=== PATIENT | male | born 1970 | race Caucasian/White ===

== ENCOUNTER → 2017-12-31 | Outpatient (CLI) | payer BC ==
[~2017-12-31] VITALS: Ht 175.3 cm; Wt 72.6 kg
[~2017-12-31] MED LIST: CARVEDILOL3.125 MG PO; LASIX 20 MG TAB20 MG PO; LISINOPRIL5 MG PO
[2017-12-31 12:36] LABS: MCH 28.5 pg (26.0-34.0); MCHC 32.5 g/dL (28.0-37.0); MCV 87.7 fL (80.0-100.0); MPV 9.3 fl. (7.2-11.1); RBC 4.9 mil/uL (4.50-6.00); RDW-CV 13.8 % (10.5-14.5); WBC 5.9 thou/uL (4.0-11.0)
[2017-12-31 12:46] LABS: ANION GAP 4 mmol/L (7-16); BUN 20 mg/dL (7-18); CALCIUM 8.7 mg/dL (8.5-10.1); CHLORIDE 105 mmol/L (98-107); CO2 27 mmol/L (21-32); GLUCOSE 89 mg/dL (70-99); POTASSIUM 4.8 mmol/L (3.5-5.1); SODIUM 136 mmol/L (136-145)
[2017-12-31 12:47] LABS: APTT 23.6 Seconds (25.0-31.3); INR 1.1; PROTIME 11.1 Seconds (9.20-11.50)
[2017-12-31 12:51] LABS: ALBUMIN 3.4 g/dL (3.4-5.0); ALKALINE PHOSPHATASE 66 U/L (46-116); CHOLESTEROL 182 mg/dL (<200); HDL CHOLESTEROL 52 mg/dL (>40); LDL CHOLESTEROL 115 mg/dL (<100); SGOT 33 U/L (15-37); SGPT 76 U/L (30-65); TC:HDL 3.5 Ratio (Not establshd); TOTAL BILIRUBIN 0.6 mg/dL (<0.1-1.0); TOTAL PROTEIN 6.8 g/dL (6.4-8.2); TRIGLYCERIDE 75 mg/dL (<150); VLDL 15 mg/dL (<40)
[2017-12-31 12:53] LABS: SERUM ASSESSMENT Clear
[2017-12-31 14:46] VITALS: BP 81/54
[2017-12-31 15:10] VITALS: BP 82/59
[2017-12-31 15:15] VITALS: BP 88/60
[2017-12-31 15:30] VITALS: BP 84/55
[2017-12-31 16:00] VITALS: BP 90/60
--- NOTE | 2017-12-31 17:12 | EKG ---
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[facility] : 1970 Requested By: Mak Hassan Order Number: [id number] Roya MD: Corby Joseph Measurements Intervals Elroy Rate: 96 P: 73 CO: 165 QRS: 74 QRSD: 108 T: 55 QT: 366 QTc: 463 Interpretive Statements Sinus rhythm Left atrial enlargement Left ventricular hypertrophy Nonspecific T abnormalities, lateral leads Baseline wander in lead(s) V2 No previous ECG available for comparison Electronically Signed On 12-31-2017 17:11:59 CDT by Corby Joseph [email or web address] <ELECTRONICALLY SIGNED> By: Corby Joseph MD, [facility] 12/31/17 1711 1210 1210 Corby Joseph MD, FACC /EPI
--- NOTE | 2017-12-31 17:31 | CARD ---
[address] [address] CARDIAC CATH REPORT Name: CLIFFORD NYE Room: [facility]#: [id number] Admission: 12/31/17 Attend Phys: Mak Hassan MD Discharge: Date of : 70 Report #: [id number] THIS REPORT FOR: //name// APPROVED REPORT Study performed: 12/31/2017 14:00:16 Patient Details Patient Status: Out-Patient Room #: The patient is a 47 year-old male Event Personnel Mak Hassan Soundscriber Mechanic, Mallorie Cruz RN RN, Dima Smith, Clifford Patel ARRT (R) Scrub, Mabel Boggs RTR Scrub Procedures Performed Right transradial approach, Left Heart Catheterization, Selective Right and Left Coronary Angiography, Left Ventriculogram Indication CHF Current Status: Yes Procedure Narrative The patient was brought electively to the Cardiac Catheterization Laboratory and was prepped and draped in a sterile manner. The right wrist was infiltrated with 1% Lidocaine subcutaneous anesthesia. A Slender Glidesheath sheath was inserted into the . Coronary angiography was performed using coronary diagnostic catheters. The right coronary system was accessed and visualized with a DCR: [place] 4.0 5fr catheter. The left coronary system was accessed and visualized with a DCR: [place] 4.0 5fr catheter. The left ventricle was accessed and visualized with a PC: Angled Pig 5fr catheter. The patient tolerated the procedure well and there were no complications associated with the procedure. VASC BAND 8CC'S Intraoperative Conscious Sedation Sedation start time: 1359 Case end Time: 1417 Fentanyl 50 mcg Versed 2 mg Fluoro Time: 2.5 minutes Dose: DAP 43196 cGycm2 466 mGy Contrast Type and Amount: Omnip[place] [address] [place] [address] CARDIAC CATH REPORT Name: CLIFFORD NYE Room: [facility]#: [id number] Admission: 12/31/17 Attend Phys: Mak Hassan MD Discharge: Date of : 70 Report #: [id number] Diagnostic Cath Left Main Normal bifurcating into the LAD and circumflex coronary arteries. LAD Normal in its proximal mid and distal portion. Diagonal 1 Normal and large in caliber. Circumflex Normal in its proximal mid and distal portion. OM1 Normal and small in caliber. OM2 Normal large and branch. Right Coronary Normal in its proximal mid and distal portion. R PDA Normal. RPLV Normal. Left Ventriculography The left ventricle is moderately dilated in size with decreased contractility. The left ventricular ejection fraction is estimated to be 20-25%. Hemodynamics The aortic pressure is 76/49 mmHg with a mean of 61 mmHg. The left ventricular pressure is 73/8 mmHg with a mean of mmHg. The left ventricular end diastolic pressure is 19 mmHg. Conclusion 1. Normal coronary arteries. 2. Dilated left ventricle. 3. Severe left ventricular systolic dysfunction. 4. Moderately elevated left ventricular end-diastolic pressure. Findings consistent with dilated cardiomyopathy that is nonischemic in origin. Recommendations 1. Continue medical management for heart failure and aggressive risk factor medication. <ELECTRONICALLY SIGNED> By: Mak Hassan MD, FACC 12/31/17 1731 173 1731Michaeopal Hassan MD, FACC /INF
--- NOTE | 2018-01-03 11:39 | H ---
[address] [address] HISTORY AND PHYSICAL Name: PARRISCLIFFORD Espinosa Room: [facility]#: [id number] Admission: 12/31/17 Attend Phys: Mak Hassan MD Discharge: Date of : 70 Report #: [id number] THIS REPORT FOR: //name// CC: BENJAMIN physician/PCP Mak Hassan DATE OF SERVICE: 12/31/2017 INDICATION: Congestive heart failure evaluation. HISTORY OF PRESENT ILLNESS: The patient is a very pleasant 47-year-old gentleman diagnosed with acute systolic heart failure approximately 3 weeks ago. The patient had symptoms of dyspnea and orthopnea. His symptoms resolved with diuresis. Ejection fraction was 20%. He had left ventricular enlargement and moderate left atrial dilatation, moderate mitral insufficiency and rqarllfa-[id number] tricuspid insufficiency. He did not have any chest pain. He denies palpitations. There was no syncope. He is without other cardiac complaint. There is a history of methamphetamine use up until a month ago. PAST MEDICAL HISTORY: 1. Newly diagnosed acute systolic heart failure. 2. Mitral insufficiency. 3. Tricuspid insufficiency. 4. History of polysubstance abuse. SOCIAL HISTORY: The patient denies use of tobacco. ALLERGIES: None documented. MEDICATIONS: None prior to diagnosis. Presently, he is on diuretics, GENEVIEVE inhibitor, and beta ingris. REVIEW OF SYSTEMS: A 14-point review of systems is negative. PHYSICAL EXAMINATION: VITAL SIGNS: Stable. Blood pressure 112/67, pulse 98 and regular. GENERAL: This is a thin white male, in no distress. HEENT: The patient is wearing glasses. Extraocular muscles intact. Mucous membranes are moist. NECK: Shows no jugular venous distention. There are no carotid bruits. CHEST: Reveals clear lung rosen. CARDIAC: Reveals a regular rhythm with no gallop or murmur. ABDOMEN: Reveals a thin abdomen, soft, nontender, bowel sounds presents. EXTREMITIES: Shows no clubbing, cyanosis or edema. Peripheral pulses 2+ [place] [address] HISTORY AND PHYSICAL Name: CLIFFORD NYE Room: [facility]#: [id number] Admission: 12/31/17 Attend Phys: Mak Hassan MD Discharge: Date of : 70 Report #: [id number] LABORATORY DATA: A 12-lead EKG shows sinus rhythm with left atrial enlargement and delayed R-wave progression. There are repolarization abnormalities noted. IMPRESSION AND RECOMMENDATIONS: 1. Cardiomyopathy, etiology not clear. The patient presents for left heart catheterization and coronary angiography to further evaluate cardiac structure and function. We will continue current medical management. He appears clinically improved on his current regimen. 2. Moderate mitral insufficiency. No indication for repair at this time. Recommend follow up with serial echocardiogram. 3. History of polysubstance abuse. Cessation obviously advised. <ELECTRONICALLY SIGNED> By: Mak Hassan MD, [facility] 01/03/18 1139 1317 1441[facility] Hospitalelizabeth Hassan MD, FACC /nt
== END | disposition home or self-care (01) ==
LOC: M.CL 11:16
PROVIDERS: Internal Medicine Cardiovascular Disease
DX: I50.1 Left ventricular failure, unspecified (principal); I42.9 Cardiomyopathy, unspecified; I08.1 Rheumatic disorders of both mitral and tricuspid valves; Z87.898 Personal history of other specified conditions; Z79.899 Other long term (current) drug therapy